=== PATIENT | female | born 1990 | race Caucasian/White ===

== ENCOUNTER 2020-01-02 14:13 | Emergency (ER) | payer MEDICAID ==
[~2020-01-02] VITALS: Ht 154.9 cm; Wt 60.0 kg
[~2020-01-02 14:13] MED LIST: ORPH100T2 PO; PREG20SO PO
[2020-01-02] MEDS ORDERED: IBUPROFEN 600MG TABLET PO ONE (15:45)
[2020-01-02 17:56] VITALS: BP 120/68
== END 2020-01-02 17:58 | disposition home or self-care (01) ==
LOC: ER 14:13
DX: B34.9 Viral infection, unspecified (principal)
CPT/HCPCS: 71045; 99283